=== PATIENT | female | born 1995 | race African-American/Black ===

== ENCOUNTER 2021-06-13 05:55 | Inpatient (IN) | payer BC ==
[2021-06-13] MEDS ORDERED: CARBOPROST TROMETHAMINE 250 MCG/ML 1 ML AMP IM PRN (08:34)
[2021-06-13] MEDS ORDERED: OXYTOCIN 10 UNIT/ML 1 ML VIAL IM PRN (08:34)
[2021-06-13] MEDS ORDERED: LIDOCAINE 1% (PF) 10 MG/ML (30 ML SDV) SQ PRN (08:34)
[2021-06-13] MEDS ORDERED: METHYLERGONOVINE 0.2 MG/ML 1 ML AMP IM PRN (08:34)
[2021-06-13] MEDS ORDERED: TERBUTALINE 1 MG/ML VIAL SQ PRN (08:34)
[2021-06-13] MEDS: LACTATED RINGERS 1,000 ML IV SCH ×4 (09:30→20:27)
[2021-06-13 10:02] LABS: Basophils % (A) 0 %; Eosinophils # (A) 0.1 k/uL (0-0.7); Eosinophils % (A) 1 %; HCT 42.6 % (34.0-46.0); HGB 13.5 gm/dL (11.4-16.0); Lymphocytes % (A) 9 %; MCH 27.9 pg (25.0-35.0); MCHC 31.7 g/dL (31.0-37.0); MCV 87.9 fL (80.0-100.0); Mean Platelet Volume 8.9; Monocytes # (A) 0.4 k/uL (0-1.0); Monocytes % (A) 3 %; Neutrophils # (A) 10.2 k/uL (1.3-7.7); Neutrophils % (A) 86 %; Platelet Count 392 k/uL (150-450); RBC 4.84 m/uL (3.80-5.40); RDW 14.4 % (11.5-15.5); WBC 11.9 k/uL (3.8-10.6)
[2021-06-13] MEDS ORDERED: OXYTOCIN 30 UNITS/500 ML NS 30 UNIT in SALINE 1 500ML.BAG IV SCH ×2 (11:45→20:15)
--- NOTE | 2021-06-13 13:40 | P.HPOB ---
History of Present Illness H&P Date: 06/13/21 Chief Complaint: 40 and one sevenths weeks, spontaneous rupture of membranes The patient is a 25-year-old 1 para 0 admitted at 40 and one sevenths weeks as established by last menstrual period and confirmed by 9 week ultrasound. She is admitted with documented spontaneous rupture of membranes while in triage and in early labor. Her has been entirely unc omplicated though she is Rh- and received RhoGAM at 28 weeks. On labor and delivery, all signs reassuring with a category 1 heart rate tracing. Group B strep status is negative. Amniotic fluid is clear. Obstetrical history: 1 para 0 with current statistics listed in history present illness. EDC of 06/12/2021 was established by last menstrual period and confirmed by 9 week ultrasound. Laboratory workup demonstrates a blood type of A- with a negative antibody screen. Rubella status is immune. Remainder of the laboratory workup was within normal limits. Early Glucola as well as second trimester Glucola were normal and group B strep status is negative. Gynecologic history: Unremarkable with no history of any infections to include STDs Review of Systems Review of systems is confined to history of present illness. Past Medical History Past Medical History: No Reported History History of Any Multi-Drug Resistant Organisms: None Reported Past Surgical History: No Surgical Hx Reported Past Anesthesia/Blood Transfusion Reactions: No Reported Reaction Smoking Status: Never smoker - Past Family History Mother Family Medical History: No Reported History Medications and Allergies Home Medications Medication Instructions Recorded Confirmed Type Pnv No.95/Ferrous Fum/Folic AC 1 tab PO DAILY 06/10/21 06/13/21 History [ Multivitamin Tablet] Allergies Allergy/AdvReac Type Severity Reaction Status Date / Time No Known Allergies Allergy Verified 06/10/21 01:09 Exam Vital Signs Temp Pulse Resp BP Pulse Ox 06/13/21 09:27 98.2 F 105 H 18 148/81 99 Intake and Output 06/12/21 06/13/21 06/13/21 22:59 06:59 14:59 Other: Weight 95.254 kg 95.254 kg In general, this is a well-developed, well-nourished -Serbian female in no acute distress. Her heart has a regular rhythm and rate without murmur. Her lungs are clear to auscultation bilaterally in all liao. Her abdomen is gravid, nondistended, has normal active bowel sounds, is soft, nontender, and without any palpable masses aside from the uterine fundus. Her extremities are without any cyanosis, clubbing, or edema and are nontender to palpation bilaterally. Digital cervical examination at admission demonstrated her cervix to be approximately 3 cm dilated, 80% effaced, the vertex in presentation at -2 station. Spontaneous rupture of membranes is confirmed with clear fluid. Results Result Diagrams: 06/13/21 09:26 Abnormal Lab Results - Last 24 Hours (Table) 06/13/21 Range/Units 09:26 WBC 11.9 H (3.8-10.6) k/uL Neutrophils # 10.2 H (1.3-7.7) k/uL Assessment and Plan (1) Spontaneous rupture of amniotic membranes Current Visit: Yes Status: Acute Code(s): JBI1526 - SNOMED Code(s): 106728651 (2) Active labor at term Current Visit: Yes Status: Acute Code(s): TYR7871 - SNOMED Code(s): 22451273 Plan: The patient has been admitted for active management of labor. As she was making little progress on her own, Pitocin has been added. She will have close maternal and surveillance and expectant management will be practiced. She is a good candidate for either IV or epidural analgesia, whichever she may choose.
[2021-06-13] MEDS ORDERED: SODIUM CHLORIDE 0.9% 100 ML BAG ONE (14:22)
[2021-06-13] MEDS ORDERED: fentaNYL (PF) 50 MCG/ML 5 ML AMP ONE (14:22)
[2021-06-13] MEDS ORDERED: ROPIVACAINE 5MG/ML 20ML VIAL ONE (14:22)
[2021-06-13] MEDS ORDERED: CITRIC ACID-SODIUM CITRATE 15 ML CUP PO ONE (18:53)
[2021-06-13] MEDS ORDERED: LACTATED RINGERS 1,000 ML IV ONE (18:55)
[2021-06-13] MEDS ORDERED: OXYTOCIN 30 UNITS/500 ML NS BAG IV ONE (19:03)
[2021-06-13] MEDS ORDERED: MORPHINE SULFATE (PF) 0.3 MG/0.3 ML SYR ONE (19:03)
[2021-06-13] MEDS ORDERED: KETOROLAC 15 MG/ML 1 ML VIAL ONE (19:03)
[2021-06-13] MEDS ORDERED: PHENYLEPHRINE-0.9% NACL SYG 1,000 MCG/10 ML SYRINGE ONE (19:03)
[2021-06-13] MEDS ORDERED: ONDANSETRON 4 MG/2 ML VIAL ONE (19:03)
[2021-06-13] MEDS ORDERED: CHLOROPROCAINE 3% 30 MG/ML 20 ML VIAL ONE (19:03)
--- NOTE | 2021-06-13 20:03 | P.OP ---
Date of Procedure: 06/13/21 Preoperative Diagnosis: #1. 40 and one sevenths weeks, labor #2. intolerance of labor #3. Suspected malposition Postoperative Diagnosis: Same plus #4. right occiput transverse #5. Nuchal cord 1 Procedure(s) Performed: #1. Primary low-transverse section Anesthesia: epidural Surgeon: Luca Haro Community Associate #1: Luke Blunt Estimated Blood Loss (ml): 359 IV fluids (ml): 1,000 Urine output (ml): 100 Pathology: none sent Condition: stable Disposition: floor Operative Findings: The patient had made perhaps 2 cm of progress from noon today to this evening at approximately 7:00 this evening with no significant engagement of the head in the pelvis. A significant amount of caput was noted to have formed and the presentation was felt to be occiput transverse. Additionally, the patient was noted to have category 2 heart rate tracing with relatively repetitive late decelerations though still with moderate variability present. Given the remoteness from delivery with the heart rate tracing, decision was made to proceed with primary low transverse section. She was taken to the operating room where she was delivered of a viable 7 lbs. 5 oz. baby girl with Apgars of 9 at 1 minute and 10 at 5 minutes delivered in the right occiput transverse position. The placenta was delivered manually, intact, and grossly normal with a grossly normal three-vessel cord. The uterus, tubes, and ovaries were entirely normal to inspection. Description of Procedure: The patient was prepped and draped in usual fashion after epidural anesthesia was bolused by the anesthesiologist. A Pfannenstiel incision was made and extended into the abdominal cavity without difficulty. The bladder peritoneum was significant a distal to the intended site of incision was left intact. A 2 cm incision was made in the transverse plane of the lower uterine segment to enter the uterus at which time clear fluid was again noted. The incision was extended in both directions using the bandage scissors. The head was found in the pelvis in the right occiput transverse position was delivered up and through the incision where the nose and mouth were thoroughly suctioned. A nuchal cord was noted but reduced following delivery of the onto the field. The cord was doubly clamped, cut, and the infant passed for resuscitative measures with weight and Apgars as noted above. A segment of cord was doubly clamped, cut, and set aside should cord gases become necessary. The placenta was delivered manually and intact as noted above. The uterus was exteriorized and the interior cavity of uterus swept of any remaining placental or murmurs fragments. The margins of the uterine incision were grasped with Barry clamps and the incision closed in 2 layers. The first layer was a running locking stitch of 0 chromic catgut followed by a running imbricating stitch of 0 chromic catgut, both from margin to margin. The posterior cul-de-sac was suctioned using a guard and the uterine and ovarian findings were normal as noted above. The uterus was replaced within the abdominal cavity and the gutters swept of any remaining blood, fluid, or clot. Reexamination of the incision demonstrated some mild oozing in the central portion of the incision which was made hemostatic with the Bovie and with a single dzwzje-de-spddn stitch of 0 chromic catgut. Hemostasis then appeared to be excellent. The parietal peritoneum was loosely reapproximated in the layer of muscles made hemostatic with the Bovie. The fascia was closed with 2 running stitches of 0 Vicryl proceeding from the lateral margins to the midpoint. The subcutaneous tissues were irrigated, made hemostatic with the Bovie, and reapproximated with a running stitch of 30 plain catgut. The skin was reapproximated with a running subcuticular stitch of 4-0 Vicryl followed by half-inch Steri-Strips placed with Mastisol. Estimated blood loss for the case was 359 mL (calculated). There were no complications. All sponge, instrument, and needle counts were correct. The patient tolerated the procedure well and proceeded to the recovery room in stable condition. Both mother and infant are resting comfortably in recovery.
[2021-06-13] MEDS ORDERED: METOCLOPRAMIDE 5 MG/ML 2 ML VIAL IVP PRN (20:04)
[2021-06-13] MEDS ORDERED: diphenhydrAMINE 50 MG CAP PO PRN (20:04)
[2021-06-13] MEDS ORDERED: LANOLIN CREAM 5 GM TUBE TOPICAL PRN (20:04)
[2021-06-13] MEDS ORDERED: diphenhydrAMINE 50 MG/ML 1 ML VIAL IVP PRN ×2 (20:04)
[2021-06-13] MEDS ORDERED: diphenhydrAMINE 25 MG CAP PO PRN (20:04)
[2021-06-13] MEDS ORDERED: ZOLPIDEM 5 MG TAB PO PRN (20:04)
[2021-06-13] MEDS ORDERED: HYDROmorphone 2 MG TAB PO PRN (20:04)
[2021-06-13] MEDS ORDERED: NALOXONE 0.4 MG/ML 1 ML VIAL IV PRN (20:04)
[2021-06-13] MEDS ORDERED: ONDANSETRON 4 MG/2 ML VIAL IVP PRN (20:04)
[2021-06-13] MEDS ORDERED: KETOROLAC 30 MG/ML 1 ML VIAL IVP PRN (20:04)
[2021-06-13] MEDS ORDERED: SIMETHICONE 80 MG CHEWABLE PO PRN (20:04)
[2021-06-14] MEDS: ACETAMINOPHEN TAB 500 MG TAB PO SCH ×4 (03:00→21:27)
[2021-06-14] MEDS: LACTATED RINGERS 1,000 ML IV SCH ×3 (04:58→19:42)
[2021-06-14] MEDS: IBUPROFEN 600 MG TAB PO SCH ×4 (04:58→21:12)
[2021-06-14 06:37] LABS: Basophils # (A) 0.1 k/uL (0-0.2); Basophils % (A) 1 %; Eosinophils # (A) 0.1 k/uL (0-0.7); Eosinophils % (A) 0 %; HCT 36.3 % (34.0-46.0); HGB 11.6 gm/dL (11.4-16.0); Lymphocytes # (A) 1.8 k/uL (1.0-4.8); Lymphocytes % (A) 11 %; MCH 28.6 pg (25.0-35.0); MCV 89.4 fL (80.0-100.0); Mean Platelet Volume 8.4; Monocytes # (A) 0.7 k/uL (0-1.0); Monocytes % (A) 5 %; Neutrophils # (A) 13.2 k/uL (1.3-7.7); Neutrophils % (A) 82 %; Platelet Count 328 k/uL (150-450); RBC 4.06 m/uL (3.80-5.40); RDW 14.6 % (11.5-15.5)
--- NOTE | 2021-06-14 06:41 | P.PN ---
Progress Note - Text Progress Note Date: 06/14/21 Patient seen and examined at bedside POD 1 s/p with epidural boluses with duramoprh. Patient reports good pain control overnight, however pain is still 6/10. She denies headache, fever/chills, weakness, itching. Patient has been able to ambulate and using the restroom. She has regained all motor and sensory function. Switch to oral pain medications for post operative pain management as an adjunct. Will continue to follow.
[2021-06-14] MEDS: SENNOSIDES-DOCUSATE SODIUM 1 EACH TAB PO SCH ×2 (08:37→21:12)
--- NOTE | 2021-06-14 08:38 | P.PNOBGPC ---
Subjective - Subjective Patient reports: Reports appetite normal, Reports voiding normally, Reports pain well controlled, Reports ambulating normally : doing well Objective - Vital Signs Latest vital signs: Vital Signs Temp Pulse Resp BP Pulse Ox 06/14/21 04:00 97.7 F 92 16 108/64 06/13/21 20:55 94 17 113/66 06/13/21 20:40 84 17 88/55 06/13/21 20:25 101 H 17 93/52 06/13/21 20:10 96 17 95/56 06/13/21 19:55 97.5 F L 85 17 97/55 99 06/13/21 09:27 98.2 F 105 H 18 148/81 99 Intake and Output 06/13/21 06/14/21 06/14/21 22:59 06:59 14:59 Intake Total 16.533 Output Total 359 359 Balance -342.467 -359 Intake: Intake, IV Titration 16.533 Amount Oxytocin 30 Units/500 ml 16.533 Ns 30 unit In Saline 1 500ml.bag @ Per Protocol IV .Q0M [facility] Rx#:[id number] Output: Estimated Blood Loss 359 359 Other: Voiding Method Indwelling Catheter - Exam Extremities: Present: normal Abdomen: Present: normal appearance, soft. Absent: distention, tenderness Incision: Present: normal, dry, intact Uterus: Present: normal, firm (The uterine fundus is, and appropriately tender below the umbilicus.) - Labs Labs: Abnormal Lab Results - Last 24 Hours (Table) 06/13/21 06/14/21 Range/Units 09:26 05:35 WBC 11.9 H 16.0 H (3.8-10.6) k/uL Neutrophils # 10.2 H 13.2 H (1.3-7.7) k/uL Assessment and Plan (1) Spontaneous rupture of amniotic membranes Current Visit: Yes Status: Acute Code(s): [id number] - SNOMED Code(s): 315635594 (2) Active labor at term Current Visit: Yes Status: Acute Code(s): DIV2996 - SNOMED Code(s): 08286447 (3) S/P section Current Visit: Yes Status: Acute Code(s): Z98.891 - HISTORY OF UTERINE SCAR FROM PREVIOUS SURGERY SNOMED Code(s): 349606010 Plan: Continue routine postoperative and care. I have encouraged the patient in the hallways at least 4 times daily or more. I would anticipate possible discharge home tomorrow pending complications from either maternal or standpoint.
[2021-06-14] MEDS: HYDROmorphone 2 MG TAB PO PRN (23:50)
[2021-06-15] MEDS: ACETAMINOPHEN TAB 500 MG TAB PO SCH ×2 (01:41→06:10)
[2021-06-15] MEDS: IBUPROFEN 600 MG TAB PO SCH ×2 (06:10→08:49)
[2021-06-15] MEDS: SENNOSIDES-DOCUSATE SODIUM 1 EACH TAB PO SCH (08:49)
--- NOTE | 2021-06-15 08:56 | P.DS ---
Providers Date of admission: 06/13/21 08:33 Expected date of discharge: 06/15/21 Attending physician: Luca Haro Primary care physician: Stated None - Discharge Diagnosis(es) (1) Spontaneous rupture of amniotic membranes Current Visit: Yes Status: Acute (2) Active labor at term Current Visit: Yes Status: Acute (3) S/P section Current Visit: Yes Status: Acute Hospital Course: The patient is a 25-year-old 1 para 0 admitted at 40 and one sevenths weeks by good dating parameters perches admitted in early active labor with spontaneous rupture of membranes. She was Rh- and received RhoGAM at 28 weeks. On labor and delivery, all signs reassuring. She had ultimately Pitocin augmentation started and made progress to approximately 5 cm by the early afternoon. She then made very little progress thereafter into the early evening and began to have repetitive late decelerations. Given her remoteness from delivery as well as the head not being well engaged in the pelvis and thought to be in a malposition along with the category 2 heart rate tracing, decision was made to proceed with primary low-transverse section. She was delivered in that fashion of a viable 7 lbs. 5 oz. baby girl with Apgars of 9 at 1 minute and 10 at 5 minutes. Her postoperative course has been unremarkable with vital signs being stable and her temperature was afebrile throughout. She is deemed stable for discharge on postoperative and day #2 and was discharged home to follow-up in the office in 2 weeks for an incision check and 6 weeks routinely. Discharge instructions included calling for any significantly increased bleeding or foul-smelling lochia, significantly increased fever abdominal pain, perineal complaints, breast complaints, incisional complaints, or anything else that concerned her. She was additionally instructed to have nothing in the vagina for at least 6 weeks time to include intercourse and to abstain from any heavy lifting over the same period of time. She was last instructed to do no driving until off of all pain medications or 2 weeks' time, whichever came first. She understood her instructions and agrees to follow up as noted above. Discharge medications included continued vitamins as well as [id number] analgesic pain medications. She was provided a prescription for Tylenol 3, 1-2 by mouth every 6 hours when necessary pain, #20 dispensed with no refills. Maternal blood type is A- and cord blood was sent for evaluation for the necessity of RhoGAM. Rubella status is immune. Discharge hemoglobin and hematocrit were 11.6 and 36.3 respectively. Procedures: #1. Pitocin augmentation #2. Epidural analgesia 3. Primary low-transverse section Patient Condition at Discharge: Stable Plan - Discharge Summary New Discharge Prescriptions: No Action Pnv No.95/Ferrous Fum/Folic AC [ Multivitamin Tablet] 1 tab PO DAILY Discharge Medication List Pnv No.95/Ferrous Fum/Folic AC [ Multivitamin Tablet] 1 tab PO DAILY 06/10/21 [History] Follow up Appointment(s)/Referral(s): Luca Haro MD [STAFF PHYSICIAN] - 2 Weeks Discharge Disposition: HOME SELF-CARE
[2021-06-15 16:24] VITALS: BP 114/83; PULSE 103; RESP 16; TEMP 98.1
[2021-06-15] MEDS: HYDROmorphone 2 MG TAB PO PRN (16:26)
== END 2021-06-15 17:50 | disposition home or self-care (01) | DRG 788 ==
LOC: FBPOP 05:55 → 4FBP 08:33
PROVIDERS: ADMIT Obstetrics & Gynecology; ATTEND Obstetrics & Gynecology
PROC: 10D00Z1 Extraction of Products of Conception, Low, Open Approach (ICD-10-PCS; principal; 2021-06-13)
PROC: 4A0HXCZ Measurement of Products of Conception, Cardiac Rate, External Approach (ICD-10-PCS; 2021-06-13)
PROC: 3E033VJ Introduction of Other Hormone into Peripheral Vein, Percutaneous Approach (ICD-10-PCS; 2021-06-13)
DX: O76 Abnormality in fetal heart rate and rhythm complicating labor and delivery (principal); O69.81X0 Labor and delivery complicated by cord around neck, without compression, not applicable or unspecified; Z3A.40 40 weeks gestation of pregnancy; O32.9XX0 Maternal care for malpresentation of fetus, unspecified, not applicable or unspecified; Z67.41 Type O blood, Rh negative; Z37.0 Single live birth; O26.893 Other specified pregnancy related conditions, third trimester
CPT/HCPCS: 59025; 84112; 85025; 86850; 86900; 86901; 99215